=== PATIENT | female | born 1985 | race Asian ===

== ENCOUNTER 2022-02-02 14:12 | Outpatient (CLI) | payer OTHER ==
[2022-02-02 15:34] LABS: BASOPHILS # (AUTO) 0.1 K/uL (0.0-0.2); BASOPHILS % (AUTO) 1.4 % (0.0-2.0); EOSINOPHILS # (AUTO) 0.2 K/uL (0.0-0.4); EOSINOPHILS % (AUTO) 3.2 % (0.0-4.0); HEMATOCRIT 41.5 % (36-48); HEMOGLOBIN 13.8 g/dL (12.0-16.0); LYMPHOCYTES # (AUTO) 1.7 K/uL (1.0-5.5); LYMPHOCYTES % (AUTO) 30.5 % (20.5-51.5); MEAN CORPUSCULAR HEMOGLOBIN 29 pg (27-31); MEAN CORPUSCULAR HGB CONC 33 % (32-36); MEAN CORPUSCULAR VOLUME 86 fL (79.0-98.0); MONOCYTES # (AUTO) 0.4 K/uL (0.0-1.0); MONOCYTES % (AUTO) 6.9 % (1.7-9.3); NEUTROPHILS # (AUTO) 3.1 K/uL (1.8-7.7); PLATELET COUNT (AUTO) 258 K/uL (130-430); RED BLOOD CELL COUNT(AUTO) 4.82 MIL/uL (4.2-6.2); RED CELL DISTRIBUTION WIDTH 12.9 % (9.0-15.0); WHITE BLOOD COUNT (AUTO) 5.4 K/uL (4.8-10.8)
[2022-02-02 15:53] LABS: ANION GAP 6 (5-15); CALCIUM 9.3 mg/dL (8.4-11.0); CHLORIDE 104 mmol/L (98-107); CREATININE 0.94 mg/dL (0.55-1.30); GLUCOSE 91 mg/dL (70-99); POTASSIUM 4.2 mmol/L (3.5-5.1); TOTAL BILIRUBIN 0.6 mg/dL (0.0-1.0); UREA NITROGEN, BLOOD 14 mg/dL (8-21)
[2022-02-02 15:54] LABS: ALANINE AMINOTRANSFERASE 14 U/L (12-78); ASPARTATE AMINOTRANSFERASE 13 U/L (10-37); THYROID STIMULATING HORMONE 1.88 uIu/mL (0.36-3.74)
[2022-02-02 15:56] LABS: C-REACTIVE PROTEIN QUANT < 0.2 mg/dL (0-0.5); GFR AFRICAN AMERICAN 87 mL/min (>90)
[2022-02-02 16:16] LABS: ERYTHROCYTE SEDIMENTATION RATE 4 MM/HR (0-20)
[2022-02-02 16:20] LABS: HCG,QUANTITATIVE 3 mIU/ML (0-6)
[2022-02-02 17:22] LABS: CHOLESTEROL 196 mg/dL (<200); HDL CHOLESTEROL 86 mg/dL (>55); LDL CHOLESTEROL 108 mg/dL (<100); TRIGLYCERIDES 44 mg/dL (30-150)
== END 2022-02-02 19:00 | disposition home or self-care (01) ==
LOC: SCT 14:12
PROVIDERS: ATTEND Internal Medicine
DX: Z11.1 Encounter for screening for respiratory tuberculosis (principal); R91.8 Other nonspecific abnormal finding of lung field; I10 Essential (primary) hypertension; E78.5 Hyperlipidemia, unspecified; E55.9 Vitamin D deficiency, unspecified; R94.8 Abnormal results of function studies of other organs and systems
CPT/HCPCS: 36415; 71250-TC; 76376; 80053; 80061; 82306; 82607; 84443; 84702; 85025; 85651-TC; 86140; 86480

== ENCOUNTER 2022-02-28 14:50 | Outpatient (CLI) | payer OTHER | END 2022-02-28 20:07 | disposition home or self-care (01) | LOC: SRD 14:50 | PROVIDERS: ATTEND Internal Medicine | DX: R91.8 Other nonspecific abnormal finding of lung field (principal) | CPT/HCPCS: 71550-TC ==